=== PATIENT | female | born 1955 | race Caucasian/White ===

== ENCOUNTER 2020-06-21 08:17 | Emergency (ER) | payer BC, OTHER ==
[~2020-06-21] VITALS: Ht 172.7 cm; Wt 70.3 kg
[~2020-06-21 08:17] MED LIST: LISINOPRIL2.5 MG PO
[2020-06-21] MEDS ORDERED: HYDROCODONE/APAP 5MG-325MG TAB PO ONE (08:30)
[2020-06-21] MEDS ORDERED: DEXAMETHASONE SOD PHOS 10 MG/1 ML VIAL IM ONE (08:30)
[2020-06-21] MEDS ORDERED: KETOROLAC TROMETHAMINE 60 MG/2 ML VIAL IM ONE (08:30)
[2020-06-21] MEDS ORDERED: METHYLPREDNISOLO4 M1 PO (09:03)
[2020-06-21] MEDS ORDERED: HYDROCODON-ACE1 EA11 PO (09:03)
[2020-06-21] MEDS ORDERED: KETOROLAC TROME10 MG PO (09:03)
[2020-06-21 09:40] VITALS: BP 170/82
== END 2020-06-21 09:43 | disposition home or self-care (01) ==
LOC: ER 08:58
DX: M54.41 Lumbago with sciatica, right side (principal); E03.9 Hypothyroidism, unspecified
CPT/HCPCS: 99282; J1100; J1885